=== PATIENT | female | born 1965 | race Hispanic/Latino ===

== ENCOUNTER 2018-02-23 18:01 | Emergency (ER) | payer BC, OTHER ==
[2018-02-23 18:36] LABS: BASOPHILS % (AUTO) 0.8 % (0.0-5.0); EOSINOPHILS % (AUTO) 3.3 % (0.0-8.0); LYMPHOCYTES % (AUTO) 20.8 % (21.0-51.0); MEAN CORPUSCULAR HEMOGLOBIN 30.5 pg (27.0-33.0); MEAN CORPUSCULAR HGB CONC 35.5 g/dL (32.0-36.0); MEAN CORPUSCULAR VOLUME 85.9 fL (79-99); MONOCYTES % (AUTO) 7.3 % (3.0-13.0); NEUTROPHILS % (AUTO) 67.8 % (40.0-77.0); PLATELET COUNT (AUTO) 321 K/uL (130-400); RED BLOOD CELL COUNT(AUTO) 4.42 MIL/uL (4.00-5.50); RED CELL DISTRIBUTION WIDTH 14.2 % (11.0-15.5); WHITE BLOOD COUNT (AUTO) 6.8 K/uL (4.8-10.8)
[2018-02-23] MEDS ORDERED: ONDANSETRON HCL 4 MG/2 ML VIAL ONE (18:42)
[2018-02-23 18:43] LABS: CREATININE 1.1 mg/dL (0.5-1.5); POTASSIUM 3.6 mmol/L (3.5-5.1)
[2018-02-23 18:46] LABS: INR 0.96 (0.85-1.15); PARTIAL THROMBOPLASTIN TIME 26.3 SEC (26.3-35.5); PROTHROMBIN TIME 10.1 SEC (9.6-11.6)
[2018-02-23 18:50] LABS: AMPHET/METH SCREEN,URINE NEGATIVE (NEGATIVE); BARBITURATE SCREEN, URINE NEGATIVE (NEGATIVE); BENZODIAZEPINES SCREEN,URINE NEGATIVE (NEGATIVE); CANNABINOID SCREEN,URINE NEGATIVE (NEGATIVE); COCAINE SCREEN,URINE NEGATIVE (NEGATIVE); OPIATE SCREEN,URINE NEGATIVE (NEGATIVE); PHENCYCLIDINE SCREEN,URINE NEGATIVE (NEGATIVE)
[2018-02-23 18:56] LABS: ALBUMIN 3.7 g/dL (3.5-5.0); BILIRUBIN,TOTAL 0.4 mg/dL (0.2-1.0); CREATINE KINASE MB 0.6 ng/mL (0.5-3.6); TOTAL PROTEIN, SERUM 8.2 g/dL (6.0-8.3)
[2018-02-23] MEDS ORDERED: SODIUM CHLORIDE 0.9% 1000ML 1,000 ML IV ONE ×2 (19:23→20:53)
[2018-02-23] MEDS ORDERED: KETOROLAC TROMETHAMINE 30MG/ML ONE (19:59)
[2018-02-23] MEDS ORDERED: TAMSULOSIN HCL 0.4 MG CAP.ER.24H ONE (20:53)
[2018-02-23] MEDS ORDERED: TRAMADOL HCL 50 MG TABLET ONE (20:53)
[2018-02-23 22:04] LABS: APPEARANCE,URINE Clear (CLEAR); BILIRUBIN,URINE Negative (NEGATIVE); COLOR,URINE Yellow (YELLOW); GLUCOSE, URINE (UA) TRACE mg/dL (NEGATIVE); KETONES,URINE 15 mg/dL (NEGATIVE); LEUKOCYTE ESTERASE ,URINE Negative (NEGATIVE); NITRATE,URINE Negative (NEGATIVE); OCCULT BLOOD,URINE Small (NEGATIVE); PROTEIN,URINE Negative (NEGATIVE); UROBILINOGEN,URINE 0.2 mg/dL (0.2-1.0)
[2018-02-23 22:13] LABS: HCG,QUAL RESULT NEGATIVE (NEGATIVE)
[2018-02-23 22:20] LABS: BACTERIA,URINE Rare /HPF (None Seen); SQUAMOUS EPITHELIAL CELL,UR Few /HPF (0-2); WBC,URINE 0-1 /HPF (0-1)
== END 2018-02-23 21:57 | disposition home or self-care (01) ==
LOC: EDH 18:01
DX: N20.1 Calculus of ureter (principal); E78.5 Hyperlipidemia, unspecified; Z88.8 Allergy status to other drugs, medicaments and biological substances
CPT/HCPCS: 36415; 74176; 80053; 80305; 81001; 81025; 82150; 82550; 82553; 83690; 84484; 84703; 85025; 85610; 85730; 93005; 96374 ×2; 99285; J1885; J2405; J7030 ×2

== ENCOUNTER → 2018-10-25 | Outpatient (CLI) | payer BC | END | disposition home or self-care (01) | LOC: OIH 13:49 | PROVIDERS: ATTEND Internal Medicine | DX: M17.0 Bilateral primary osteoarthritis of knee (principal); M19.072 Primary osteoarthritis, left ankle and foot; M19.042 Primary osteoarthritis, left hand; M19.041 Primary osteoarthritis, right hand | CPT/HCPCS: 73130; 73560; 73630 ==

== ENCOUNTER 2023-12-16 06:51 | Day surgery (SDC) | payer OTHER ==
[2023-12-11 13:09] LABS: BASOPHILS # (AUTO) 0.04 K/uL (0.00-0.20); BASOPHILS % (AUTO) 0.9 % (0.0-5.0); EOSINOPHILS # (AUTO) 0.33 K/uL (0.00-0.70); EOSINOPHILS % (AUTO) 7.7 % (0.0-8.0); HEMATOCRIT 38.7 % (36-48); IMMATURE GRANULOCYTE ABSOLUTE 0.01 K/uL (0-1); LYMPHOCYTES # (AUTO) 1.2 K/uL (1.0-4.8); LYMPHOCYTES % (AUTO) 27.1 % (21.0-51.0); MEAN CORPUSCULAR HEMOGLOBIN 29.4 pg (27.0-33.0); MEAN CORPUSCULAR HGB CONC 32.8 g/dL (32.0-36.0); MEAN CORPUSCULAR VOLUME 89.6 fL (79-99); MONOCYTES # (AUTO) 0.3 K/uL (0.1-1.0); MONOCYTES % (AUTO) 6.7 % (3.0-13.0); NEUTROPHILS # (AUTO) 2.5 K/uL (1.8-7.7); NEUTROPHILS % (AUTO) 57.4 % (40.0-77.0); PLATELET COUNT (AUTO) 323 K/uL (130-400); RED BLOOD CELL COUNT(AUTO) 4.32 MIL/uL (4.00-5.50); RED CELL DISTRIBUTION WIDTH 13.6 % (11.0-15.5); WHITE BLOOD COUNT (AUTO) 4.3 K/uL (4.8-10.8)
[2023-12-11 13:22] LABS: ALBUMIN 3.7 g/dL (3.5-5.0); BILIRUBIN,TOTAL 0.5 mg/dL (0.2-1.0); CREATININE 0.9 mg/dL (0.5-1.0); POTASSIUM 3.9 mmol/L (3.5-5.1)
[2023-12-11 13:23] LABS: INR <= 0.93 (0.85-1.15); PROTHROMBIN TIME 10.5 SEC (9.6-11.6)
[2023-12-11 13:24] LABS: PARTIAL THROMBOPLASTIN TIME 28.5 SEC (26.3-35.5)
[2023-12-11 13:54] VITALS: BP 168/74; PULSE 85; RESP 18
[~2023-12-16] VITALS: Ht 149.9 cm; Wt 79.7 kg
[~2023-12-16 06:51] MED LIST: ALBU90AE2 IH; ERGO500093 PO; GABA-529 PO; GLIM2TAB30 PO; GLIM4TAB36 PO; IBUP-2070 PO; INSU100V37 SQ; LEVO112C4 PO; NORE5TAB7 PO
[2023-12-16] MEDS ORDERED: INSULIN HUMULIN R 100 UNIT/ML 3ML SQ ONE (08:00)
[2023-12-25] MEDS ORDERED: FERR-82 PO (16:32)
== END 2023-12-16 07:55 | disposition home or self-care (01) ==
LOC: DAH 06:51 → EDSTATUS 15:00
PROVIDERS: ATTEND Obstetrics & Gynecology
DX: Z01.812 Encounter for preprocedural laboratory examination (principal); N95.0 Postmenopausal bleeding; Z90.710 Acquired absence of both cervix and uterus
CPT/HCPCS: 80053; 84703; 85025; 85610; 85730; 86850 ×2; 86900 ×2; 86901 ×2; 36415 ×2; 82948 ×2; A6260

== ENCOUNTER 2023-12-30 06:10 | Day surgery (SDC) | payer OTHER ==
[2023-12-25 14:30] VITALS: BP 145/68; PULSE 97; RESP 16
[~2023-12-30] VITALS: Ht 149.9 cm; Wt 79.7 kg
[2023-12-30] VITALS (22 sets, daily range): BP systolic 110–158; BP diastolic 56–88; PULSE 67–97; RESP 14–20; TEMP 97.9
[~2023-12-30 06:10] MED LIST changes: +FERR-82 PO
[2023-12-30] MEDS ORDERED: MIDAZOLAM HCL 1 MG/ML 2ML VIAL ONE (07:14)
[2023-12-30] MEDS ORDERED: PROPOFOL 10 MG/ML 20ML VIAL IV ONE (07:14)
[2023-12-30] MEDS ORDERED: FENTANYL CITRATE PF 50 MCG/1 ML 5ML AMP IV ONE (07:14)
[2023-12-30] MEDS ORDERED: ROCURONIUM BROMIDE 10MG/1ML 5ML VL ONE (07:14)
[2023-12-30] MEDS ORDERED: ONDANSETRON 4MG INJ ONE (07:40)
[2023-12-30] MEDS ORDERED: MAGNESIUM SULFATE 1 GM/2 ML VIAL ONE (07:50)
[2023-12-30] MEDS ORDERED: KETAMINE 50MG/ML SYRINGE 50 MG/ML DISP.SYRIN ONE (07:51)
[2023-12-30] MEDS: DEXAMETHASONE SOD PHOSPHATE 4 MG/ML 1ML VIAL ONE (07:54)
[2023-12-30] MEDS: CEFAZOLIN SODIUM 2 GM VIAL ONE (07:54)
[2023-12-30] MEDS: PHENAZOPYRIDINE HCL 200 MG TABLET ONE (07:55)
[2023-12-30] MEDS: SCOPOLAMINE HYDROBROMIDE 1 EACH ADH..PATCH TD ONE (07:56)
[2023-12-30] MEDS: METRONIDAZOLE 500MG/100ML BAG 100 ML ONE (07:57)
[2023-12-30] MEDS: 0.9%NACL 1000ML 1,000 ML IV ONE (07:57)
[2023-12-30] MEDS: CEFAZOLIN SODIUM 2 GM VIAL IVPB ONE (08:00)
[2023-12-30] MEDS ORDERED: DEXAMETHASONE SOD PHOSPHATE 10MG/ML 1ML VIAL ONE (08:09)
[2023-12-30] MEDS ORDERED: LIDOCAINE 1%-EPI 1:100,000 20 ML VIAL ONE (08:22)
[2023-12-30] MEDS ORDERED: PHENYLEPHRINE HCL 10 MG/ML 1ML VIAL IV ONE (08:25)
[2023-12-30] MEDS ORDERED: NEOSTIGMINE METHYLSULFATE 1MG/ML IV ONE (09:18)
[2023-12-30] MEDS ORDERED: GLYCOPYRROLATE 0.2 MG/ML 5 ML VIAL ONE (09:18)
[2023-12-30] MEDS ORDERED: SUGAMMADEX SODIUM 200 MG/2 ML VIAL IV ONE (09:30)
[2023-12-30] MEDS: ONDANSETRON 4MG INJ IVP ONE (10:52)
[2023-12-30] MEDS: ACETAMINOPHEN 500 MG TABLET PO ONE (10:55)
[2023-12-30] MEDS ORDERED: MORPHINE 10MG VIAL ONE (11:08)
[2023-12-30] MEDS: MORPHINE 10 MG SYG IM ONE (11:11)
== END 2023-12-30 13:30 | disposition home or self-care (01) ==
LOC: DAH 06:10
PROVIDERS: ATTEND Obstetrics & Gynecology
DX: N95.0 Postmenopausal bleeding (principal); D06.7 Carcinoma in situ of other parts of cervix; D25.9 Leiomyoma of uterus, unspecified; N85.8 Other specified noninflammatory disorders of uterus; E78.00 Pure hypercholesterolemia, unspecified; E03.9 Hypothyroidism, unspecified; E11.9 Type 2 diabetes mellitus without complications; M19.90 Unspecified osteoarthritis, unspecified site; G89.29 Other chronic pain; Z82.49 Family history of ischemic heart disease and other diseases of the circulatory system; Z83.3 Family history of diabetes mellitus; Z80.9 Family history of malignant neoplasm, unspecified; Z88.8 Allergy status to other drugs, medicaments and biological substances; Z79.1 Long term (current) use of non-steroidal anti-inflammatories (NSAID); Z79.4 Long term (current) use of insulin; Z79.51 Long term (current) use of inhaled steroids; Z79.890 Hormone replacement therapy; Z79.899 Other long term (current) drug therapy; Z90.49 Acquired absence of other specified parts of digestive tract; Z98.890 Other specified postprocedural states
CPT/HCPCS: 84703; 86850 ×2; 86900 ×2; 86901 ×2; 36415 ×2; 58290; 82948 ×2; 81025; 88311; 88305; A6260; J1100 ×2; A4663; J7030 ×2; A4351; A4344; J3010; J3490 ×6; J3475; J2250; J2704; J2405 ×2; J2710; J2371; J2270; J0690 ×2; A4649; A4930; A4215; A4223; A4222; A4221; A4554; A4335; A4600; A4510